=== PATIENT | male | born 1970 | race Caucasian/White ===

== ENCOUNTER 2017-10-16 13:24 | Emergency (ER) | payer OTHER ==
[2017-10-16 13:31] VITALS: PULSE 75; TEMP 98.5; BMI 36.3
[2017-10-16] MEDS ORDERED: ATENOLOL 50 MG TABLET (FP) PO ONE (14:24)
--- NOTE | 2017-10-16 14:24 | PDOC ---
History of Present Illness - General Chief Complaint: RX Refill Stated Complaint: NEEDS PRESCRIPTIONS FOR PAIN MED AND BLOOD PRES Time Seen by Provider: 10/16/17 13:28 - History of Present Illness Initial Comments: 10/16/17 14:38 Chief complaint: Needs refill of pain management medication History of present illness: Patient presented to his primary physician and pain management physician today to find out that both head retired from practice and no coverage was available. He has been taking for hydrocodone daily for 2 years for his pain management, as well as Valium and a 10 00. He has no exacerbations of his pain and no symptoms of withdrawal Past medical history: Numerous injuries resulting in disability. Particularly, the right thumb and low back. Social/family history reviewed and otherwise noncontributory Physical exam: Alert and oriented moderately obese no acute distress cheerful and cooperative Afebrile, vital signs normal except for mildly to moderately elevated blood pressure of approximately 160/110 PERRLA 4 mm, fundi benign, ENT clear Neck supple without bruit mass or nodes Lungs clear to P&A CV regular without murmur rub or gallop pulses full and symmetric no JVD or edema no bruits Abdomen soft nontender without mass or organomegaly Neurological C2 to 12 intact. Strength full and symmetric. No focal sensory or motor deficits. Gait stable and unimpaired Skin clear, no rash, adequate turgor and wet mucous membranes Extremities no CCE Impression: No acute disease. 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 Unable to access his medication now. Also elevated blood pressure Plan: Refill narcotic analgesics until able to arrange adequate follow-up. Discussed attempting to discontinue narcotics under medical supervision in the future. Monitor blood pressure. Past History - Past Medical History Allergies/Adverse Reactions: Allergies Allergy/AdvReac Type Severity Reaction Status Date / Time amlodipine besylate Allergy Verified 12/19/15 19:24 [From Lotrel] benazepril HCl [From Lotrel] Allergy Verified 10/16/17 13:31 Home Medications: Ambulatory Orders Diazepam [Valium -] 10 mg PO TID 09/19/13 Atenolol [Tenormin -] 50 mg PO DAILY #30 tablet 10/16/17 Atenolol [Tenormin -] 100 mg PO DAILY 10/16/17 Hydrocodone/Acetaminophen [Hydrocodone-Acetamin 10-325 mg] 1 tab PO Q6H #20 tablet MDD 4 10/16/17 COPD: No HTN: Yes - Immunization History Td Vaccination: Yes Immunization Up to Date: Yes - Suicide/Smoking/Psychosocial Hx Smoking Status: Yes Smoking History: Current every day smoker Years of Tobacco Use: 30 Have you smoked in the past 12 months: Yes Number of Cigarettes Smoked Daily: 20 Information on smoking cessation initiated: Yes 'Breaking Loose' booklet given: 10/16/17 Hx Alcohol Use: No Drug/Substance Use Hx: No Substance Use Type: None Hx Substance Use Treatment: No *Physical Exam - Vital Signs Last Vital Signs Temp Pulse Resp BP Pulse Ox 98.5 F 75 16 209/118 98 10/16/17 13:26 10/16/17 13:26 10/16/17 13:26 10/16/17 13:26 10/16/17 13:26 Medical Decision Making - Medical Decision Making 10/16/17 15:18 Blood pressure is 150/100. Instructed to follow-up 24 hours for blood pressure check. Referred to primary physician and pain management. *DC/Admit/Observation/Transfer Diagnosis at time of Disposition: Elevated blood pressure reading, Pain management - Discharge Dispostion Disposition: HOME Condition at time of disposition: Stable Decision to Admit order: No - Prescriptions Prescriptions: Atenolol [Tenormin -] 50 mg PO DAILY #30 tablet Hydrocodone/Acetaminophen [Hydrocodone-Acetamin 10-325 mg] 1 tab PO Q6H #20 tablet MDD 4 - Referrals Referrals: Jhon Dang MD [Non Staff, Medical] - Teri Rodriguez MD [Non Staff, Medical] - - Patient Instructions Printed Discharge Instructions: DI for High Blood Pressure, DI for Prescription Opioid Use Additional Instructions: It is important to monitor your blood pressure. Additional medication may be required. Heavy blood pressure rechecked in 24 hours. Take your medication as directed You will have to find another pain management physician as soon as possible to avoid interruption of your pain medication. You should consider undergoing withdrawal if narcotic medication under medical supervision as soon as possible. - Post Discharge Activity
[2017-10-16] MEDS ORDERED: ATENOLOL 50 MG TABLET (FP) ONE (14:36)
[2017-10-16 15:17] VITALS: BP 152/101
== END 2017-10-16 15:37 | disposition home or self-care (01) ==
LOC: FER 13:24
DX: Z76.0 Encounter for issue of repeat prescription (principal); I10 Essential (primary) hypertension
CPT/HCPCS: 99281-25

== ENCOUNTER 2018-04-24 12:49 | Emergency (ER) | payer OTHER ==
[2018-04-24 13:18] VITALS: PULSE 66; TEMP 97.7; BMI 33.3
[2018-04-24] MEDS ORDERED: LIDOCAINE HCL 2% JELLY (30 ML/TUBE) TP ONE (13:46)
--- NOTE | 2018-04-24 13:46 | PDOC ---
Attending Attestation - Resident Resident Name: Jessie Romano - ED Attending Attestation I have performed the following: I have examined & evaluated the patient, The case was reviewed & discussed with the resident, I agree w/resident's findings & plan, Exceptions are as noted - HPI HPI: 04/24/18 13:38 48y M hx of htn, migraines presents with foreskin pain. He attempt to retract his foreskin on saturday and felt sudden pain in his foreskin. The pain has been pursistent sinc. pt endorses it as a sharp burning pain. Pt is sexually active with a partner of 5 years. NO fever/chills, abd pain, diarrhea, dysuria, penile d/c, frequency. no hx of STDs - Physicial Exam PE: 04/24/18 13:49 : +ulcers on foreskin with erythemadous base, no penile dc, no erythema - Medical Decision Making 04/24/18 13:50 clinicaly consistent with herpes will treat with topical lido will give acyclovir will have pt fuw ith PMD return precautiosn were discussed
--- NOTE | 2018-04-24 13:47 | PDOC ---
History of Present Illness - General Chief Complaint: Redness To Affected Area Stated Complaint: FORESKIN PAIN Time Seen by Provider: 04/24/18 13:14 History Source: Patient - History of Present Illness Initial Comments: 04/24/18 13:26 48M w/ pmhx of uncontrolled HTN and migraines presents with 3 day history of fore skin pain. He states 3 days ago in the morning, he started having severe pain as he was retracting his foreskin to urinate. He states he has never had this pain before. Pain is present all the time. Denies history of STDs. He currently is sexually active with 1 female partner, his fiance. Denies dysuria, hematuria, penile discharge, difficulty urinating, erectile dysfunction. Pt states he has been unable to have sexual intercourse over the past 3 days due to the pain. Denies f/c, n/v, cp, sob, abd pain, bowel symptoms, blood in stool. Past History - Past Medical History Allergies/Adverse Reactions: Allergies Allergy/AdvReac Type Severity Reaction Status Date / Time amlodipine besylate Allergy Severe Swelling Verified 04/24/18 13:09 [From Lotrel] benazepril HCl [From Lotrel] Allergy Severe Swelling Verified 04/24/18 13:09 Home Medications: Ambulatory Orders Atenolol [Tenormin -] 100 mg PO DAILY 10/16/17 Acetaminophen/Caffeine/Butalb [Fioricet -] 1 tab PO Q6H PRN 04/24/18 Acyclovir [Zovirax -] 400 mg PO TID #21 tablet 04/24/18 COPD: No HTN: Yes Other medical history: HEADACHES, CERVICAL & LOWER BACK PAIN - Immunization History Td Vaccination: Yes Immunization Up to Date: Yes - Suicide/Smoking/Psychosocial Hx Smoking Status: Yes Smoking History: Current every day smoker Years of Tobacco Use: 30 Have you smoked in the past 12 months: Yes Number of Cigarettes Smoked Daily: 5 Information on smoking cessation initiated: Yes 'Breaking Loose' booklet given: 10/16/17 Hx Alcohol Use: No Drug/Substance Use Hx: No Substance Use Type: None Hx Substance Use Treatment: No Review of Systems - Review of Systems Able to Perform ROS?: Yes Is the patient limited Estonian proficient: No Constitutional: No: Chills, Fever HEENTM: No: Recent change in vision Respiratory: No: Cough, Shortness of Breath Cardiac (ROS): No: Chest Pain, Lightheadedness ABD/GI: No: Nausea, Vomiting : Yes: Pain (penile pain upon foreskin retraction), Lesions. No: Burning, Dysuria, Discharge, Frequency, Testicular Mass Neurological: No: Headache, Dizziness *Physical Exam - Vital Signs Last Vital Signs Temp Pulse Resp BP Pulse Ox 97.7 F 66 18 197/124 H 100 04/24/18 13:04 04/24/18 13:04 04/24/18 13:04 04/24/18 13:04 04/24/18 13:04 - Physical Exam General Appearance: Yes: Appropriately Dressed HEENT: positive: EOMI, REI, Normal Voice Neck: positive: Supple Respiratory/Chest: positive: Lungs Clear, Normal Breath Sounds Cardiovascular: positive: Regular Rhythm, Regular Rate, S1, S2. negative: Murmur Vascular Pulses: Dorsalis-Pedis (R): 2+, Doralis-Pedis (L): 2+ Gastrointestinal/Abdominal: positive: Normal Bowel Sounds, Soft Male Genitalia: positive: other (multiple vesicular lesions on penile shaft; penile tenderness on shaft). 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 -Upon exam, pt has multiple, painful vesicular lesions likely due to genital herpes -Will Rx Acyclovir 400 mg TID for 7 days. -Pt's BP also high, will retake vitals. Pt needs follow up with PCP as his current BP medication may need adjustment. Advised to follow up with PCP tomorrow. *DC/Admit/Observation/Transfer Diagnosis at time of Disposition: Genital herpes Qualifiers: Herpes simplex infection site: penis Qualified Code(s): A60.01 - Herpesviral infection of penis - Discharge Dispostion Disposition: HOME Condition at time of disposition: Good Decision to Admit order: No - Prescriptions Prescriptions: Acyclovir [Zovirax -] 400 mg PO TID #21 tablet - Referrals - Patient Instructions Printed Discharge Instructions: DI for Genital Herpes Additional Instructions: You were seen in the ED for complaints of penile pain. In the ED, you were evaluated and found to have genital herpes. Please take Acyclovir 400 mg three times a day for 7 days. A prescription has been sent to your pharmacy. Please also continue taking your home medications as prescribed. Please follow up with your primary care physician within 1 week. If you experience worsening penile pain with discharge/blood, persistent chest pain or shortness of breath, please proceed to your nearest emergency room immediately. - Post Discharge Activity
[2018-04-24] MEDS ORDERED: LIDOCAINE HCL 2% JELLY (5 ML/TUBE) ONE (13:51)
[2018-04-24 14:24] VITALS: BP 178/120
== END 2018-04-24 14:25 | disposition home or self-care (01) ==
LOC: FER 12:49
DX: A60.01 Herpesviral infection of penis (principal); I10 Essential (primary) hypertension; G89.29 Other chronic pain; F17.210 Nicotine dependence, cigarettes, uncomplicated
CPT/HCPCS: 99281-25

== ENCOUNTER 2022-10-06 09:25 | Observation (INO) | payer OTHER ==
[2022-10-06 09:39] VITALS: BMI 28.6
[2022-10-06] MEDS ORDERED: SODIUM CHLORIDE 1,000 ML IV STA (09:44)
[2022-10-06 10:24] LABS: HEMATOCRIT 47.7 % (35.4-49); HEMOGLOBIN 16.6 G/dL (11.7-16.9); MCH 30.4 pg (25.7-33.7); MCHC 34.8 g/dl (32.0-35.9); MEAN CELL VOLUME 87.5 fl (80-96); MEAN PLT VOLUME 11.1 fl (7.5-11.1); PLATELET COUNT 183.5 10^3/uL (134-434); RBC 5.45 10^6/uL (4.00-5.60); RDW 13.8 % (11.9-15.9); WHITE BLOOD COUNT 14.3 10^3/uL (4.0-10.8)
[2022-10-06 10:31] LABS: ALBUMIN 4.3 g/dl (3.4-5.0); BILIRUBIN,TOTAL 1.1 mg/dl (0.2-1); CALCIUM 9.9 mg/dl (8.5-10); CREATININE 1.5 mg/dl (0.55-1.3); POTASSIUM 3.7 mmol/L (3.5-5.1); TOT PROT 7.9 g/dl (6.4-8.2)
[2022-10-06] MEDS: SODIUM CHLORIDE 0.9%/KCL 20 MEQ/1,000 ML INFUS.BAG IV SCH (11:06)
[2022-10-06 11:52] LABS: PLATELET ESTIMATE ADEQUATE
[2022-10-06] MEDS ORDERED: INSULIN REGULAR HUMAN 100 UNITS/ML *VIAL IVPUSH ONE (12:04)
[2022-10-06] MEDS ORDERED: INSULIN REGULAR HUMAN 100 UNITS/ML *VIAL SQ ONE (12:38)
[2022-10-06] MEDS ORDERED: POTASSIUM CHLORIDE ORAL LIQUID 20 MEQ/15 ML PO ONE (12:39)
[2022-10-06] MEDS ORDERED: INSULIN REGULAR HUMAN 100 UNITS/ML *VIAL ONE (12:44)
[2022-10-06] MEDS ORDERED: POTASSIUM CHLORIDE TABS 20 MEQ TABLET.ER (FP) PO ONE (12:44)
[2022-10-06 15:05] LABS: ALBUMIN 3.2 g/dl (3.4-5.0); BILIRUBIN,TOTAL 0.6 mg/dl (0.2-1); CALCIUM 8.5 mg/dl (8.5-10); CREATININE 1.4 mg/dl (0.55-1.3); POTASSIUM 4.1 mmol/L (3.5-5.1); TOT PROT 5.9 g/dl (6.4-8.2)
[2022-10-06] MEDS ORDERED: PATIENT'S OWN MEDICATION (NON-FORMULARY) (Diazepam [Diazepam] 10 MG Tablet) PO PRN ×2 (15:35→16:46)
[2022-10-06] MEDS ORDERED: ACETAMINOPHEN/CAFFEINE/BUTALBITAL 1 TAB PO PRN (15:35)
[2022-10-06] MEDS: INSULIN SLIDING SCALE (NOVOLOG) 1 VIAL SQ SCH ×2 (17:44→21:21)
[2022-10-06] MEDS: metFORMIN HCL 500 MG TABLET (FP) PO SCH (21:20)
[2022-10-06] MEDS: ROSUVASTATIN CA 10 MG TABLET PO SCH (21:20)
[2022-10-06] MEDS: diazePAM 5 MG TABLET PO PRN (21:20)
[2022-10-06] MEDS: INSULIN (LEVEMIR) 100 UNITS/ML UNITS SQ SCH (21:21)
[2022-10-07] MEDS: metFORMIN HCL 500 MG TABLET (FP) PO SCH ×2 (06:27→21:47)
[2022-10-07] MEDS: INSULIN SLIDING SCALE (NOVOLOG) 1 VIAL SQ SCH ×4 (06:27→21:47)
[2022-10-07] MEDS: INSULIN (LEVEMIR) 100 UNITS/ML UNITS SQ SCH ×2 (06:28→21:49)
[2022-10-07] MEDS: RAMIPRIL 5 MG CAPSULE PO SCH (09:23)
[2022-10-07] MEDS: PANTOPRAZOLE 40 MG TABLET PO SCH (09:24)
[2022-10-07] MEDS: ENOXAPARIN NA (PORCINE) 40 MG/0.4 ML DISP.SYRIN SQ SCH (09:24)
[2022-10-07] MEDS: ATENOLOL 50 MG TABLET (FP) PO SCH (09:24)
[2022-10-07 09:29] LABS: ALBUMIN 3.1 g/dl (3.4-5.0); BILIRUBIN,TOTAL 0.6 mg/dl (0.2-1); CALCIUM 8.1 mg/dl (8.5-10); CREATININE 1.1 mg/dl (0.55-1.3); POTASSIUM 3.7 mmol/L (3.5-5.1); TOT PROT 5.6 g/dl (6.4-8.2)
[2022-10-07] MEDS ORDERED: RAMIPRIL 10 MG PO SCH (10:00)
[2022-10-07] MEDS ORDERED: PATIENT'S OWN MEDICATION (NON-FORMULARY) (Atenolol [Tenormin -] 100 MG Tablet) PO SCH (10:00)
[2022-10-07 11:38] LABS: HEMATOCRIT 37.6 % (35.4-49); HEMOGLOBIN 13.1 G/dL (11.7-16.9); MCH 30.7 pg (25.7-33.7); MCHC 34.9 g/dl (32.0-35.9); RBC 4.27 10^6/uL (4.00-5.60); RDW 13.6 % (11.9-15.9); WHITE BLOOD COUNT 13.5 10^3/uL (4.0-10.8)
[2022-10-07 11:39] LABS: MEAN PLT VOLUME 11.6 fl (7.5-11.1); PLATELET COUNT 137.3 10^3/uL (134-434)
[2022-10-07] MEDS: SODIUM CHLORIDE 0.9%/KCL 20 MEQ/1,000 ML INFUS.BAG IV SCH (15:59)
[2022-10-07] MEDS: diazePAM 5 MG TABLET PO PRN (21:46)
[2022-10-07] MEDS: ROSUVASTATIN CA 10 MG TABLET PO SCH (21:47)
[2022-10-07 22:39] VITALS: RESP 16
[2022-10-08] MEDS: INSULIN SLIDING SCALE (NOVOLOG) 1 VIAL SQ SCH ×2 (06:52→12:11)
[2022-10-08] MEDS: metFORMIN HCL 500 MG TABLET (FP) PO SCH (06:53)
[2022-10-08] MEDS: INSULIN (LEVEMIR) 100 UNITS/ML UNITS SQ SCH (06:53)
[2022-10-08] MEDS: RAMIPRIL 5 MG CAPSULE PO SCH ×2 (06:53→09:32)
[2022-10-08] MEDS: ATENOLOL 50 MG TABLET (FP) PO SCH ×2 (06:53→09:32)
[2022-10-08 09:05] VITALS: BP 164/84; PULSE 62; TEMP 97.8
[2022-10-08] MEDS: PANTOPRAZOLE 40 MG TABLET PO SCH (09:27)
[2022-10-08] MEDS: ENOXAPARIN NA (PORCINE) 40 MG/0.4 ML DISP.SYRIN SQ SCH (09:27)
[2022-10-08] MEDS: SODIUM CHLORIDE 0.9%/KCL 20 MEQ/1,000 ML INFUS.BAG IV SCH (12:12)
== END 2022-10-08 12:27 | disposition home or self-care (01) ==
LOC: FER 09:25 → FM/S 12:53 → INTOOBSV 12:53 → UNDODISIN 10-08 12:27
PROVIDERS: ADMIT Internal Medicine
PROC: 3E033VG Introduction of Insulin into Peripheral Vein, Percutaneous Approach (ICD-10-PCS; principal; 2022-10-06)
PROC: 3E0337Z Introduction of Electrolytic and Water Balance Substance into Peripheral Vein, Percutaneous Approach (ICD-10-PCS; 2022-10-06)
DX: E11.65 Type 2 diabetes mellitus with hyperglycemia (principal); E11.00 Type 2 diabetes mellitus with hyperosmolarity without nonketotic hyperglycemic-hyperosmolar coma (NKHHC); I10 Essential (primary) hypertension; E78.5 Hyperlipidemia, unspecified; J44.9 Chronic obstructive pulmonary disease, unspecified; F17.210 Nicotine dependence, cigarettes, uncomplicated; Z88.8 Allergy status to other drugs, medicaments and biological substances; Z79.84 Long term (current) use of oral hypoglycemic drugs; Z79.85 Long-term (current) use of injectable non-insulin antidiabetic drugs; E11.22 Type 2 diabetes mellitus with diabetic chronic kidney disease; I12.9 Hypertensive chronic kidney disease with stage 1 through stage 4 chronic kidney disease, or unspecified chronic kidney disease; N18.9 Chronic kidney disease, unspecified; K21.9 Gastro-esophageal reflux disease without esophagitis; E66.9 Obesity, unspecified; Z68.28 Body mass index [BMI] 28.0-28.9, adult; F41.9 Anxiety disorder, unspecified
CPT/HCPCS: 0241U-QW; 36415; 71045-TC-FY; 76882-TC-RT-FY; 80053; 81003; 82010; 82947; 82962; 83036; 84439; 84443; 85025; 85027; 93005; 93010; 96361; 96372; 96374; 99285-25; G0378

== ENCOUNTER 2024-04-23 17:51 | Observation (INO) | payer OTHER ==
[2024-04-23 18:42] VITALS: BMI 29.0
[2024-04-23 19:39] LABS: HEMATOCRIT 45.9 % (35.4-49); HEMOGLOBIN 15.7 G/dL (11.7-16.9); MCH 29.1 pg (25.7-33.7); MCHC 34.1 g/dl (32.0-35.9); MEAN CELL VOLUME 85.3 fl (80-96); MEAN PLT VOLUME 10.5 fl (7.5-11.1); PLATELET COUNT 145.4 10^3/uL (134-434); RBC 5.38 10^6/uL (4.00-5.60); RDW 13.9 % (11.9-15.9); WHITE BLOOD COUNT 12.5 10^3/uL (4.0-10.8)
[2024-04-23 20:10] LABS: ALBUMIN 4.3 g/dl (3.4-5.0); BILIRUBIN,TOTAL 0.7 mg/dl (0.2-1); CALCIUM 9.4 mg/dl (8.5-10.1); CREATININE 1.4 mg/dl (0.6-1.3); MAGNESIUM 1.9 mg/dL (1.8-2.4); POTASSIUM 3.4 mmol/L (3.5-5.1); TOT PROT 6.3 g/dl (6.4-8.2)
[2024-04-23 20:41] LABS: PLATELET ESTIMATE ADEQUATE
[2024-04-23] MEDS: LOSARTAN 50MG/HCTZ 12.5MG 1 TAB PO ONE (22:42)
[2024-04-23 22:58] LABS: HIV INTERPRETATION NEGATIVE (NEGATIVE)
[2024-04-23] MEDS ORDERED: ACETAMINOPHEN 325 MG TABLET (FP) PO PRN (23:49)
[2024-04-23] MEDS ORDERED: DOCUSATE SODIUM 100 MG CAPSULE (FP) PO PRN (23:49)
[2024-04-24] MEDS ORDERED: NITROGLYCERIN SUBLINGUAL 1/150 0.4 MG TAB ONE (00:17)
[2024-04-24] MEDS: NITROGLYCERIN SUBLINGUAL 1/150 0.4 MG TAB SL ONE (00:20)
[2024-04-24] MEDS ORDERED: hydrALAZINE HCL 20 MG/ML VIAL ONE (01:06)
[2024-04-24] MEDS: hydrALAZINE HCL 20 MG/ML VIAL IVPUSH ONE ×2 (01:10→03:11)
[2024-04-24] MEDS ORDERED: ALBUTEROL SO4 HFA INHALER IH PRN (03:00)
[2024-04-24 07:02] VITALS: RESP 18
[2024-04-24] MEDS: INSULIN ASPART SLIDING SCALE (NOVOLOG) 1 VIAL SQ SCH (07:13)
[2024-04-24 08:47] LABS: CALCIUM 10.1 mg/dl (8.5-10.1); CREATININE 1.2 mg/dl (0.6-1.3); POTASSIUM 3.3 mmol/L (3.5-5.1)
[2024-04-24 10:15] LABS: BASO % 0.4 % (0-2.0); EOS % 2.5 % (0-4.5); HEMATOCRIT 48.3 % (35.4-49); HEMOGLOBIN 16.5 GM/dL (11.7-16.9); LYMPH % 17.3 % (8-40); MCH 28.5 pg (25.7-33.7); MCHC 34.1 g/dl (32.0-35.9); MEAN CELL VOLUME 83.6 fl (80-96); MEAN PLT VOLUME 10.9 fl (7.5-11.1); MONO % 6.3 % (3.8-10.2); NEUT % 73.5 % (42.8-82.8); PLATELET COUNT 169 10^3/uL (134-434); RBC 5.78 M/mm3 (4.00-5.60); RDW 14.6 % (11.9-15.9); WHITE BLOOD COUNT 13.2 K/mm3 (4.0-10.0)
[2024-04-24] MEDS: POTASSIUM CHLORIDE ORAL LIQUID 20 MEQ/15 ML PO ONE (10:20)
[2024-04-24] MEDS: PANTOPRAZOLE 40 MG TABLET PO SCH (10:20)
[2024-04-24] MEDS: ASPIRIN COATED 81 MG TABLET.EC PO SCH (10:20)
[2024-04-24] MEDS: LOSARTAN 50MG/HCTZ 12.5MG 1 TAB PO SCH (13:15)
[2024-04-24] MEDS: ROSUVASTATIN CA 20 MG TABLET PO SCH (22:37)
[2024-04-25] MEDS: hydrALAZINE HCL 10 MG TABLET PO SCH (07:36)
[2024-04-25 08:35] LABS: HEMATOCRIT 47.4 % (35.4-49); HEMOGLOBIN 16.1 G/dL (11.7-16.9); MCH 28.9 pg (25.7-33.7); MEAN CELL VOLUME 85.1 fl (80-96); MEAN PLT VOLUME 11.1 fl (7.5-11.1); PLATELET COUNT 148.6 10^3/uL (134-434); RBC 5.57 10^6/uL (4.00-5.60); RDW 14.8 % (11.9-15.9); WHITE BLOOD COUNT 12.3 10^3/uL (4.0-10.8)
[2024-04-25 09:23] LABS: ALBUMIN 4.3 g/dl (3.4-5.0); BILIRUBIN,TOTAL 1.3 mg/dl (0.2-1); CALCIUM 9.8 mg/dl (8.5-10.1); CREATININE 1.3 mg/dl (0.6-1.3); POTASSIUM 3.3 mmol/L (3.5-5.1); TOT PROT 6.3 g/dl (6.4-8.2)
[2024-04-25] MEDS: ISOSORBIDE MONONITRATE 30 MG TAB.SR.24H (FP) PO SCH (09:31)
[2024-04-25] MEDS: ATENOLOL 50 MG TABLET (FP) PO SCH (09:31)
[2024-04-25 12:25] LABS: PLATELET ESTIMATE ADEQUATE
[2024-04-25 14:34] VITALS: BP 142/87; PULSE 56; TEMP 97.5
== END 2024-04-25 15:49 | disposition home or self-care (01) ==
LOC: FER 17:51 → FM/S 22:43 → UNDOADMOB 04-24 00:06 → FM/S 04-24 00:06
PROVIDERS: ADMIT Internal Medicine; ATTEND Internal Medicine
PROC: 3E033GC Introduction of Other Therapeutic Substance into Peripheral Vein, Percutaneous Approach (ICD-10-PCS; principal; 2024-04-23)
PROC: 3E013VG Introduction of Insulin into Subcutaneous Tissue, Percutaneous Approach (ICD-10-PCS; 2024-04-23)
DX: I16.0 Hypertensive urgency (principal); R94.31 Abnormal electrocardiogram [ECG] [EKG]; E11.65 Type 2 diabetes mellitus with hyperglycemia; T44.7X6A Underdosing of beta-adrenoreceptor antagonists, initial encounter; N17.9 Acute kidney failure, unspecified; Z91.148 Patient's other noncompliance with medication regimen for other reason; E78.5 Hyperlipidemia, unspecified; J45.909 Unspecified asthma, uncomplicated; K21.9 Gastro-esophageal reflux disease without esophagitis; F41.8 Other specified anxiety disorders; Z88.8 Allergy status to other drugs, medicaments and biological substances
CPT/HCPCS: 36415; 71046-TC-FY; 80048; 80053; 80061; 81003; 82962; 83036; 83735; 83880; 84439; 84443; 84484; 85025; 85027; 86803; 87389; 93005; 93010; 93306-TC; 96372; 96374; 96376; 99285-25; G0378

== ENCOUNTER 2024-07-29 16:43 | Emergency (ER) | payer OTHER ==
[2024-07-29 17:24] VITALS: PULSE 58; RESP 18; TEMP 98.4; BMI 32.5
[2024-07-29] MEDS: LOSARTAN 50MG/HCTZ 12.5MG 1 TAB PO ONE (17:41)
[2024-07-29 17:52] LABS: HEMATOCRIT 49.8 % (35.4-49); HEMOGLOBIN 17.2 G/dL (11.7-16.9); MCH 29.5 pg (25.7-33.7); MCHC 34.5 g/dl (32.0-35.9); MEAN CELL VOLUME 85.6 fl (80-96); MEAN PLT VOLUME 11.1 fl (7.5-11.1); RBC 5.82 10^6/uL (4.00-5.60); RDW 14.3 % (11.9-15.9); WHITE BLOOD COUNT 13.1 10^3/uL (4.0-10.8)
[2024-07-29 18:26] LABS: ALBUMIN 4.6 g/dl (3.4-5.0); BILIRUBIN,TOTAL 0.9 mg/dl (0.2-1); CALCIUM 9.5 mg/dl (8.5-10.1); CREATININE 1.2 mg/dl (0.6-1.3); POTASSIUM 3.3 mmol/L (3.5-5.1); TOT PROT 7.3 g/dl (6.4-8.2)
[2024-07-29 18:45] VITALS: BP 188/115
[2024-07-29 21:10] LABS: HIV INTERPRETATION NEGATIVE (NEGATIVE)
== END 2024-07-29 19:23 | disposition home or self-care (01) ==
LOC: FER 16:43
DX: R42 Dizziness and giddiness (principal); I10 Essential (primary) hypertension; Z76.0 Encounter for issue of repeat prescription
CPT/HCPCS: 36415; 71046-TC-FY; 80053; 84484; 85025; 86803; 87389; 93005; 99285-25